=== PATIENT | male | born 1990 | race Caucasian/White ===

== ENCOUNTER 2020-11-14 15:56 | Emergency (ER) | payer OTHER ==
[2020-11-14 16:01] VITALS: RESP 18; TEMP 98.2
[2020-11-14] MEDS ORDERED: METOCLOPRAMIDE 5 MG/ML 2 ML VIAL IVP STA (16:14)
[2020-11-14] MEDS ORDERED: SODIUM CHLORIDE 0.9% 1,000 ML IV STA (16:14)
[2020-11-14] MEDS ORDERED: diphenhydrAMINE 50 MG/ML 1 ML VIAL IVP STA (16:15)
--- NOTE | 2020-11-14 16:40 | ED ---
General Adult HPI - General Chief complaint: Headache Stated complaint: Bad headache for a week Time Seen by Provider: 11/14/20 16:03 Source: patient, RN notes reviewed Mode of arrival: ambulatory Limitations: no limitations - History of Present Illness Initial comments: 30-year-old male presents to the emergency room for a chief complaint of headache. Patient has had a headache for one week. States it is on the top of his head and denies a height his left eye and left ear. Patient states it comes and goes. Patient has had nausea with this as well. No fevers or chills. No neck stiffness.Patient has no other complaints at this time including shortness of breath, chest pain, abdominal pain, nausea or vomiting, or visual changes. - Related Data Home Medications Medication Instructions Recorded Confirmed Aspirin/Acetaminophen/Caffeine 2 tab PO Q8HR PRN 11/14/20 11/14/20 [Excedrin Migraine Caplet] Ibuprofen [Motrin Ib] 600 mg PO Q8H PRN 11/14/20 11/14/20 Naproxen Sodium 550 mg PO Q12H 11/14/20 11/14/20 Omeprazole 20 mg PO DAILY 11/14/20 11/14/20 Allergies Allergy/AdvReac Type Severity Reaction Status Date / Time No Known Allergies Allergy Verified 11/14/20 16:52 Review of Systems ROS Statement: Those systems with pertinent positive or pertinent negative responses have been documented in the HPI. ROS Other: All systems not noted in ROS Statement are negative. Past Medical History Additional Past Medical History / Comment(s): hip defect History of Any Multi-Drug Resistant Organisms: None Reported Additional Past Surgical History / Comment(s): cyst removal Past Psychological History: No Psychological Hx Reported Smoking Status: Never smoker Past Alcohol Use History: Occasional Past Drug Use History: Marijuana General Exam Limitations: no limitations General appearance: alert, in no apparent distress Head exam: Present: atraumatic, normocephalic, normal inspection Eye exam: Present: normal appearance, PERRL, EOMI. Absent: scleral icterus, conjunctival injection, periorbital swelling ENT exam: Present: normal exam, mucous membranes moist Neck exam: Present: normal inspection, full ROM. Absent: tenderness, meningismus, lymphadenopathy Respiratory exam: Present: normal lung sounds bilaterally. Absent: respiratory distress, wheezes, rales, rhonchi, stridor Cardiovascular Exam: Present: regular rate, normal rhythm, normal heart sounds. Absent: systolic murmur, diastolic murmur, rubs, gallop, clicks GI/Abdominal exam: Present: soft, normal bowel sounds. Absent: distended, tenderness, guarding, rebound, rigid Neurological exam: Present: alert, oriented X3, normal gait, other (GSC 15) Course Vital Signs 11/14/20 15:58 Temperature 98.2 F Pulse Rate 59 L Respiratory 18 Rate Blood Pressure 132/83 O2 Sat by Pulse 100 Oximetry Medical Decision Making - Medical Decision Making Vitals are stable. Patient is well appearing. No focal neurologic deficits. CT brain is negative. Patient was given migraine cocktail and had resolution of symptoms, rating his pain as a 1-10 at 01. Patient will be discharged home. I discussed that if the symptoms worsen to return to the emergency room. Otherwise he may benefit from neurology or MRI. He will follow up with primary care for further guidance. Disposition Clinical Impression: Headache Disposition: HOME SELF-CARE Condition: Good Instructions (If sedation given, give patient instructions): Acute Headache (ED) Additional Instructions: Please take Motrin and Tylenol for pain. Follow-up with primary care in 1-2 days. You may benefit from neurology consultation or MRI. Return to the emergency room for any worsening symptoms. Is patient prescribed a controlled substance at d/c from ED?: No Referrals: Rodney Machado MD [REFERRING] - 1-2 days Time of Disposition: 17:40
--- NOTE | 2020-11-14 17:02 | CT ---
EXAMINATION TYPE: CT brain wo con DATE OF EXAM: 11/14/2020 COMPARISON: None HISTORY: Headache. CT DLP: 1080.4 mGycm Automated exposure control for dose reduction was used. Images of the brain obtained without contrast. Ventricles have normal size. There is no mass effect nor midline shift. There is no sign of intracran ial hemorrhage. Skull base is intact. Calvarium is intact. There is no evidence of cerebral edema. IMPRESSION: Negative unenhanced head CT scan.
[2020-11-14] MEDS ORDERED: KETOROLAC 15 MG/ML 1 ML VIAL IVP STA (17:11)
[2020-11-14 17:51] VITALS: BP 128/84; PULSE 62
== END 2020-11-14 17:51 | disposition home or self-care (01) ==
LOC: EC 15:56
DX: R51.9 Headache, unspecified (principal); F12.90 Cannabis use, unspecified, uncomplicated
CPT/HCPCS: 70450; 99284; 96374; 96375 ×2; 96361; J1200; J2765; J1885